=== PATIENT | female | born 1990 | race Two or more races ===

== ENCOUNTER 2021-01-27 01:04 | Emergency (ER) | payer MEDICAID, OTHER ==
[~2021-01-27] VITALS: Ht 165.1 cm; Wt 59.0 kg
[2021-01-27 03:27] LABS: Urine Bacteria NONE SEEN /hpf (None Seen); Urine Blood Negative /uL (Negative); Urine Hyaline Cast FEW /lpf (0 - 2); Urine Mucus FEW (None Seen); Urine Specific Gravity 1.033 (1.001-1.035); Urine WBC <1 /hpf (0 - 5)
[2021-01-27 04:05] VITALS: BP 115/68
[2021-01-27 04:15] LABS: Basophils # (auto) 0 10 ^3/uL (0-0.2); Basophils % (auto) 0.5 % (0.0-2.0); Eosinophils # (auto) 0.1 10 ^3/uL (0-0.8); Eosinophils % (auto) 0.6 % (0.0-7.0); Hematocrit 39.4 % (36.0-46.0); Hemoglobin 13.9 g/dL (12.2-16.2); Lymphocytes # (auto) 2.2 10 ^3/uL (0.4-5.4); Lymphocytes % (auto) 21.6 % (10.0-50.0); Mean Corpuscular Hemoglobin 31.9 pg (28.0-32.0); Mean Corpuscular Hgb Conc. 35.3 g/dL (32.0-36.0); Mean Corpuscular Volume 90.5 fL (80.0-100.0); Monocytes # (auto) 0.8 10 ^3/uL (0-1.3); Monocytes % (auto) 8.1 % (0.0-12.0); Neutrophils % (auto) 69.2 % (37.0-80.0); Red Blood Cells 4.36 10^6/uL (4.0-5.20); Red Cell Distribution Width 12.5 % (11.8-14.3); White Blood Cell 10.1 10^3/uL (4.4-10.8)
[2021-01-27 04:27] LABS: Albumin 3.8 g/dL (3.4-5.0); BUN/Creatinine Ratio 16.4; Calcium 8.7 mg/dL (8.5-10.1); Potassium 3.8 mmol/L (3.5-5.1)
[2021-01-27 04:29] LABS: Bilirubin, Total 0.2 mg/dL (0.2-1.0); Total Protein 7.8 g/dL (6.4-8.2)
[2021-01-27 04:32] LABS: INR 0.98 (0.9-1.15)
== END 2021-01-27 07:00 | disposition home or self-care (01) ==
LOC: ER 01:07
DX: O20.0 Threatened abortion (principal); Z3A.11 11 weeks gestation of pregnancy
CPT/HCPCS: 36415; 76805; 80053; 81001; 84702; 85025; 85610